=== PATIENT | male | born 1985 | race Caucasian/White ===

== ENCOUNTER 2016-08-30 14:14 | Inpatient (IN) | payer MEDICAID, OTHER ==
[~2016-08-30] VITALS: Ht 180.3 cm; Wt 75.5 kg
[~2016-08-30 14:14] MED LIST: DICL75 PO; METH750T2 PO
[2016-08-30] MEDS ORDERED: LORazepam 2 MG/ML VIAL IM ONE (14:30)
[2016-08-30] MEDS ORDERED: OLANZapine IM 10 MG VIAL IM ONE (14:30)
--- NOTE | 2016-08-30 14:32 | PD ---
HPI Chief Complaint: Psychiatric Symptoms Time Seen by Provider: 14:28 Travel History International Travel<30 days: No Contact w/Intl Traveler<30days: No Traveled to known affect area: No History of Present Illness HPI 30-year-old Afro-[place] Verdean male brought in by local police under the Hobbs act. Patient was brought in after being seen in the middle of the road yelling is passing cars and stating homicidal ideation regarding some man in [place]. Patient is confused and apparently psychotic. He appears to be sweating profusely and very agitated. There is no obvious injury noted. He is brought directly to [facility]. There are no known allergies on record. Patient was seen here previously for drug-induced mood disorder approximately 2 years ago. He has no known drug allergies. PFSH Past Medical History Hx Anticoagulant Therapy: No Diabetes: No Diminished Hearing: No Musculoskeletal: Yes (BACK PAIN) Social History Alcohol Use: Yes (UNOBTAINABLE AMOUNT) Tobacco Use: No (UNOBTAINABLE) Substance Use: Yes (MARIJUANA) Allergies-Medications (Allergen,Severity, Reaction): Coded Allergies: No Known Allergies (Unverified , 02/18/15) Reported Meds & Prescriptions Reported Meds & Active Scripts Active Robaxin (Methocarbamol) 750 Mg Tab 750 Mg PO TID PRN Diclofenac Sodium 75 Mg Tab 75 Mg PO BID 7 Days Review of Systems ROS Limitations: Uncooperative, Combative, Psychotic General / Constitutional: No: Fever Eyes: No: Visual changes HENT: No: Headaches Cardiovascular: No: Chest Pain or Discomfort Respiratory: No: Shortness of Breath Gastrointestinal: No: Abdominal Pain Genitourinary: No: Dysuria Musculoskeletal: No: Pain Skin: No Rash Neurologic: No: Weakness Psychiatric: No: Depression Endocrine: No: Polydipsia Hematologic/Lymphatic: No: Easy Bruising Physical Exam Exam Limitations: Uncooperative, Combative, Psychotic Narrative GENERAL: Patient appears confused and speaking gibberish. He is ambulatory and sweating. SKIN: Warm and moderate diaphoresis. No obvious signs of trauma, abrasions, or open wounds. EYES: No scleral icterus. No injection or drainage. ENT: No nasal bleeding or discharge. Mucous membranes pink and moist. NECK: Supple. Trachea is midline. RESPIRATORY: No accessory muscle use. MUSCULOSKELETAL: Extremities without clubbing, cyanosis, or edema. No obvious deformities. NEUROLOGICAL: Awake and alert. No obvious cranial nerve deficits. Motor grossly within normal limits. Five out of 5 muscle strength in the arms and legs. Normal speech. PSYCHIATRIC: Patient appears psychotic and not making sense in his sentences. Data Data Last Documented VS Vital Signs Date Time Temp Pulse Resp B/P Pulse Ox O2 Delivery O2 Flow Rate FiO2 08/30/16 15:57 98.8 110 20 127/52 96 Room Air Orders Complete Blood Count With Diff (08/30/16 14:27) Comprehensive Metabolic Panel (08/30/16 14:27) Psych Screen (08/30/16 14:27) Lorazepam Inj (Ativan Inj) (08/30/16 14:30) Drug Screen, Random Urine (08/30/16 14:27) Alcohol (Ethanol) (08/30/16 14:27) Olanzapine Inj (Zyprexa Inj) (08/30/16 14:30) Diet Regular Basic (08/30/16 Dinner) Restraints Violent (08/30/16 14:50) Potassium Chloride (Kcl) (08/30/16 19:15) Labs Laboratory Tests Test 08/30/16 08/30/16 16:45 18:20 White Blood Count 10.4 TH/MM3 Red Blood Count 4.79 MIL/MM3 Hemoglobin 16.4 GM/DL Hematocrit 47.9 % Mean Corpuscular Volume 100.1 FL Mean Corpuscular Hemoglobin 34.3 PG Mean Corpuscular Hemoglobin 34.3 % Concent Red Cell Distribution Width 14.6 % Platelet Count 242 TH/MM3 Mean Platelet Volume 7.9 FL Neutrophils (%) (Auto) 58.7 % Lymphocytes (%) (Auto) 21.9 % Monocytes (%) (Auto) 16.5 % Eosinophils (%) (Auto) 2.3 % Basophils (%) (Auto) 0.6 % Neutrophils # (Auto) 6.1 TH/MM3 Lymphocytes # (Auto) 2.3 TH/MM3 Monocytes # (Auto) 1.7 TH/MM3 Eosinophils # (Auto) 0.2 TH/MM3 Basophils # (Auto) 0.1 TH/MM3 CBC Comment DIFF FINAL Differential Comment Sodium Level 136 MEQ/L Potassium Level 3.3 MEQ/L Chloride Level 100 MEQ/L Carbon Dioxide Level 24.4 MEQ/L Anion Gap 12 MEQ/L Blood Urea Nitrogen 12 MG/DL Creatinine 1.23 MG/DL Estimat Glomerular Filtration 68 ML/MIN Rate Random Glucose 99 MG/DL Calcium Level 9.1 MG/DL Total Bilirubin 0.7 MG/DL Aspartate Amino Transf 54 U/L (AST/SGOT) Alanine Aminotransferase 148 U/L (ALT/SGPT) Alkaline Phosphatase 87 U/L Total Protein 7.8 GM/DL Albumin 4.2 GM/DL Ethyl Alcohol Level 68 MG/DL Urine Opiates Screen NEG Urine Barbiturates Screen NEG Urine Amphetamines Screen POS Urine Benzodiazepines Screen NEG Urine Cocaine Screen NEG Urine Cannabinoids Screen POS MDM Medical Decision Making Medical Screen Exam Complete: Yes Emergency Medical Condition: Yes Differential Diagnosis Intoxication. Drug-induced mood disorder. Psychosis. Need for medical clearance for psychiatric evaluation. Narrative Course Patient is medically stable at time of exam. Order for lorazepam 2 mg IM as well as 10 mg Zyprexa IM ordered. Lab ordered including CBC, CMP, urine drug screen, and serum alcohol level. CBC is unremarkable. CMP shows slightly low potassium of 3.3. Alcohol level is 68. AST is 54 nail TM is 148. Urine drug screen shows only positive for amphetamines and cannabinoids. Patient is given potassium 20 mEq by mouth. Patient is otherwise medically cleared for psychiatric evaluation. Diagnosis Primary Impression: Medical clearance for psychiatric admission Additional Impressions: Hypokalemia Psychosis Qualified Code: F29 - Psychosis, unspecified psychosis type Condition: Stable Adam Tomlinson Aug 30, 2016 14:32
[2016-08-30 15:57] VITALS: BP 127/52; PULSE 110; RESP 20; TEMP 98.8; O2SAT 96
[2016-08-30 17:38] LABS: ANION GAP 12 MEQ/L (5-15); AUTOMATED NEUTROPHIL # 6.1 TH/MM3 (1.8-7.7); BASOPHIL # 0.1 TH/MM3 (0-0.2); BASOPHIL % 0.6 % (0.0-2.0); EOSINOPHIL # 0.2 TH/MM3 (0-0.4); EOSINOPHIL % 2.3 % (0.0-4.0); HEMATOCRIT 47.9 % (39.0-51.0); HEMO FLAGS DIFF FINAL; LYMPH % 21.9 % (9.0-44.0); LYMPHOCYTE # 2.3 TH/MM3 (1.0-4.8); MEAN CELL VOLUME 100.1 FL (80.0-100.0); MEAN CORPUSCULAR HEMOGLOBIN 34.3 PG (27.0-34.0); MEAN CORPUSCULAR HGB CONC 34.3 % (32.0-36.0); MONO % 16.5 % (0.0-8.0); NEUT % 58.7 % (16.0-70.0); PLATELET COUNT 242 TH/MM3 (150-450); RED BLOOD COUNT 4.79 MIL/MM3 (4.50-5.90); RED CELL DISTRIBUTION WIDTH 14.6 % (11.6-17.2); WHITE BLOOD COUNT 10.4 TH/MM3 (4.0-11.0)
[2016-08-30 17:41] LABS: ALKALINE PHOSPHATASE 87 U/L (45-117); ALT (GPT) 148 U/L (12-78); AST (GOT) 54 U/L (15-37); BICARBONATE 24.4 MEQ/L (21.0-32.0); BLOOD UREA NITROGEN 12 MG/DL (7-18); CHLORIDE 100 MEQ/L (98-107); GLOMERULAR FILTRATION RATE 68 ML/MIN (>89); POTASSIUM 3.3 MEQ/L (3.5-5.1); SODIUM (NA) 136 MEQ/L (136-145); TOTAL BILIRUBIN ADULT 0.7 MG/DL (0.2-1.0)
[2016-08-30 18:58] LABS: AMPHETAMINE, URINE POS (NEG); BARBITURATES, URINE NEG (NEG); COCAINE, URINE NEG (NEG)
[2016-08-30] MEDS ORDERED: POTASSIUM CHLORIDE 20 MEQ CONTROLLED RELEASE TAB PO ONE (19:15)
[2016-08-30 22:28] VITALS: BP 115/61; PULSE 129; RESP 18; O2SAT 97
[2016-08-31] MEDS ORDERED: OLANZapine IM 10 MG VIAL IM ONE
[2016-08-31 02:42] VITALS: BP 155/69; PULSE 77; RESP 18; TEMP 97.6; O2SAT 97
[2016-08-31 06:25] VITALS: BP 145/78; PULSE 89; RESP 18; TEMP 97.3; O2SAT 99
[2016-08-31 10:49] VITALS: BP 80/50; PULSE 104; O2SAT 97
--- NOTE | 2016-08-31 12:17 | PD ---
History of Present Illness Chief Complaint: Psychiatric Symptoms Time Seen by Provider: 11:45 Travel History International Travel<30 Days: No Contact w/Intl Traveler<30days: No Known affected area: No Legal Status Legal Status: Hobbs Act Hobbs Act Signed By: Lore Massey History of Present Illness: History of Present Illness HPI 30-year-old Afro-[place]anaian male with unknown psychiatric history brought in by [employer] police under the Hobbs act. As per the report the police were called after the patient was yelling out at passing cars. he was also touching other people's cars for unknown reason. When police attempted to contact him he was irrational . He said he was going to blow someone's brains out in [place]. Patient presented to [facility] in an agitated manner and required ETO as well as restraints for potential; to harm self or others. Staff inform me that he was talking about blowing up the [place] in [place]. Later in the evening the patient once again became agitated and paranoid stating that " there was a convoy outside his room and that there were guns pointed at his father and his sister. he required a second ETO. Patient's toxicology report is positive for amphetamines, cannabinoids as well as BAL of 68. EMR reviewed and the patient was seen and released from ED in 2013 under a BA. He was dx as substance induced mood disorder. This morning he is asleep but awakens easily. he is sleepy and has no eye contact. Speech is soft. He does not initiate interaction. Initially he states that he has plans on " blowing my father's and my sister's brains out". When informed that he will not be discharged he then states " I was just bullshitting ". Nevertheless he presents with irritable and angry affect during interview. He denies any hallucinations at this time. I have attempted to contact [facility] listed and both telephone numbers are incorrect. I have no means of obtaining collateral information at this time. PFSH Past Medical History Hx Anticoagulant Therapy: No Bipolar Disorder: Yes Diabetes: No Diminished Hearing: No Musculoskeletal: Yes (BACK PAIN) Immunizations Current: Yes Tetanus Vaccination: > 5 Years Influenza Vaccination: No Past Surgical History Surgical History: No Previous Surgery Psychiatric History Psychiatric History Hx Psychiatric Treatment: Unknown History of Inpatient Treatment: Yes Guns or firearms in home: No Social History unable to obtain at this time Hx Alcohol Use: Yes (UNOBTAINABLE AMOUNT) Hx Tobacco Use: No Hx Substance Use: Yes (MARIJUANA) Substance Use Type: Alcohol, Marijuana, Amphetamines-Stimulants Hx of Substance Use Treatment: Yes Family Psychiatric History unable to obtain Allergies-Medications (Allergen,Severity, Reaction): Coded Allergies: No Known Allergies (Unverified , 02/18/15) Reported Meds & Prescriptions Reported Meds & Active Scripts Active Review of Systems ROS Limitations: Clinical Condition, Uncooperative Exam Alert: Yes [place]: Person Mood: Angry Affect: Restricted Speech: Clear (minimal responses) Eye Contact: None Memory Intact: Comment (not tested) Hallucinations: Auditory (reported last night) Delusions: Yes Delusion Type: Paranoid Suicidal: Ideation (deneis) Homicidal: Ideation (to blow the brains out of his sister and his father. ) Insight/Judgement poor. Impaired MDM Medical Decision Making Medical Record Reviewed: Yes Assessment/Plan 30 year old male under a BA after he was found yelling at passing cars. patient agitated in ED and J pod and required ETO as well as restraints. Patient with positive toxicology for amphetamines, cannabinoids and ETOH. No collateral information is available. Patient is placed on S[facility] list but it is determined that he may not be a safe transport to that facility. He will be admitted to inpatient psychiatric unit for further observation, to initiate treatment and to maintain safety. This may in fact clear up and may be a result of the substances but at this time it is not safe to discharge. Orders Complete Blood Count With Diff (08/30/16 14:27) Comprehensive Metabolic Panel (08/30/16 14:27) Psych Screen (08/30/16 14:27) Lorazepam Inj (Ativan Inj) (08/30/16 14:30) Drug Screen, Random Urine (08/30/16 14:27) Alcohol (Ethanol) (08/30/16 14:27) Olanzapine Inj (Zyprexa Inj) (08/30/16 14:30) Diet Regular Basic (08/30/16 Dinner) Restraints Violent (08/30/16 14:50) Potassium Chloride (Kcl) (08/30/16 19:15) Olanzapine Inj (Zyprexa Inj) (08/31/16 00:00) Diet Regular Basic (08/31/16 Breakfast) Diet Regular Basic (08/31/16 Lunch) Results Vital Signs Date Time Temp Pulse Resp B/P Pulse Ox O2 Delivery O2 Flow Rate FiO2 08/31/16 10:49 104 80/50 97 Room Air 08/31/16 06:25 97.3 89 18 145/78 99 Room Air 08/31/16 02:42 97.6 77 18 155/69 97 Room Air 08/30/16 22:28 129 18 115/61 97 08/30/16 15:57 98.8 110 20 127/52 96 Room Air Laboratory Tests Test 08/30/16 08/30/16 16:45 18:20 White Blood Count 10.4 Red Blood Count 4.79 Hemoglobin 16.4 Hematocrit 47.9 Mean Corpuscular Volume 100.1 Mean Corpuscular Hemoglobin 34.3 Mean Corpuscular Hemoglobin 34.3 Concent Red Cell Distribution Width 14.6 Platelet Count 242 Mean Platelet Volume 7.9 Neutrophils (%) (Auto) 58.7 Lymphocytes (%) (Auto) 21.9 Monocytes (%) (Auto) 16.5 Eosinophils (%) (Auto) 2.3 Basophils (%) (Auto) 0.6 Neutrophils # (Auto) 6.1 Lymphocytes # (Auto) 2.3 Monocytes # (Auto) 1.7 Eosinophils # (Auto) 0.2 Basophils # (Auto) 0.1 CBC Comment DIFF FINAL Differential Comment Sodium Level 136 Potassium Level 3.3 Chloride Level 100 Carbon Dioxide Level 24.4 Anion Gap 12 Blood Urea Nitrogen 12 Creatinine 1.23 Estimat Glomerular Filtration 68 Rate Random Glucose 99 Calcium Level 9.1 Total Bilirubin 0.7 Aspartate Amino Transf 54 (AST/SGOT) Alanine Aminotransferase 148 (ALT/SGPT) Alkaline Phosphatase 87 Total Protein 7.8 Albumin 4.2 Ethyl Alcohol Level 68 Urine Opiates Screen NEG Urine Barbiturates Screen NEG Urine Amphetamines Screen POS Urine Benzodiazepines Screen NEG Urine Cocaine Screen NEG Urine Cannabinoids Screen POS Diagnosis Primary Impression: Psychosis Additional Impressions: Substance-induced psychotic disorder with delusions Substance abuse Admitting Information Admitting Physician Requests: Admit (Dr. Brooks) Condition: Stable Problem Qualifiers Primary Impression: Psychosis Qualified Code: F29 - Psychosis, unspecified psychosis type Nisa Hinton Aug 31, 2016 12:17
[2016-08-31] MEDS ORDERED: MAGNESIUM HYDROXIDE SUSP 30 ML CUP PO PRN (12:30)
[2016-08-31] MEDS ORDERED: ACETAMINOPHEN 325 MG TAB PO PRN (12:30)
[2016-08-31] MEDS ORDERED: ALUMINUM/MAGNESIUM/SIMETH 30 ML CUP PO PRN (12:30)
[2016-08-31 13:30] VITALS: BP 118/84; PULSE 88; RESP 18; TEMP 97.5; O2SAT 96
[2016-09-01 06:11] VITALS: BP 125/60; PULSE 92; RESP 18; TEMP 98.8; O2SAT 98
[2016-09-01 08:26] LABS: ANION GAP 8 MEQ/L (5-15); BICARBONATE 27.6 MEQ/L (21.0-32.0); BLOOD UREA NITROGEN 11 MG/DL (7-18); CHLORIDE 104 MEQ/L (98-107); GLOMERULAR FILTRATION RATE 91 ML/MIN (>89); HDL CHOLESTEROL 46.1 MG/DL (40.0-60.0); LDL CHOLESTEROL 96 MG/DL (0-99); POTASSIUM 3.5 MEQ/L (3.5-5.1); SODIUM (NA) 140 MEQ/L (136-145)
[2016-09-01 12:48] LABS: HEMOGLOBIN A1a 0.8 %; HEMOGLOBIN A1b 0.7 %; HEMOGLOBIN Ao 87.9 %; HEMOGLOBIN F 0.6 %; HEMOGLOBIN LA1C 1.7 %; HEMOGLOBIN P3 3.1 %
[2016-09-01] MEDS ORDERED: ALUMINUM/MAGNESIUM/SIMETH 30 ML CUP PO PRN (16:45)
[2016-09-01] MEDS ORDERED: LORazepam 2 MG/ML VIAL IM PRN (16:45)
[2016-09-01] MEDS ORDERED: LORazepam 1 MG TAB PO PRN (16:45)
[2016-09-01] MEDS ORDERED: MAGNESIUM HYDROXIDE SUSP 30 ML CUP PO PRN (16:45)
[2016-09-01] MEDS ORDERED: diphenhydrAMINE HCL 50 MG CAP PO PRN (16:45)
[2016-09-01] MEDS ORDERED: ACETAMINOPHEN 325 MG TAB PO PRN (16:45)
--- NOTE | 2016-09-01 16:45 | HHI.HP ---
Provisional Diagnosis Admission Date Aug 31, 2016 at 12:24 [place]. 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 Express and informed consent means consent voluntarily given in writing, by a competent person, after sufficient explanation and disclosure of the subject matter involved to enable the person to make a knowing and willful decision without any element of force, fraud, deceit, duress, or other form of constraint or coercion. This person is 18 years of age or older, is not now known to be incompetent to consent to treatment with a guardian advocate, and does not have a health care surrogate or proxy currently making medical treatment decisions. I have found this person to be one of the following: [] Competent to provide express and informed consent, as defined above, for voluntary admission to this facility and is competent to provide express and informed consent for treatment. He/she has the consistent capacity to make well reasoned, willful, and knowing decisions concerning his or her medical or mental health treatment. The person fully and consistently understands the purpose of the admission for examination/placement and is fully capable of personally exercising all rights assured [place] [] Incompetent to provide express and informed consent to voluntary admission, and this is incompetent to provide express and informed consent to treatment. The person must be transferred to involuntary status and a petition for a guardian advocate filed with the Circuit Court. [x] Refusing to provide express and informed consent to voluntary admission but is competent to provide express and informed consent for treatment. The person must be discharged or transferred to involuntary status. Form shall be completed within 24 hours of a person's arrival at the receiving facility and filed in the clinical record of each person: 1. Admitted on a voluntary basis 2. Permitted to provide express and informed consent to his/her own treatment 3. Allowed to transfer from involuntary to voluntary status 4. Prior to permitting a person to consent to his or her own treatment after having been previously found incompetent to consent to treatment. History of Present Illness Capacity: Lacks Capacity HPI Patient is a 30-year-old Afro-Ecuadorean male comes here under Hobbs act to the injury [employer] dated 08/30/16 at 1:17 PM stating person called in advising him male was yelling at passing cars RP advised the male was also touching other people's vehicles for an unknown reason officer palm make contact with Fariha who was irrational and advised he was waiting for his father [place] the male earlier talking to himself Fried advised he was going to go and below someone's brains out in [place] of been advised he was my father and was not making sense Fariha smell of alcohol. Patient seen screened in ED urine toxicology positive for amphetamines and marijuana, blood alcohol level of 68. In the ED in J pod patient was out of control dated be placed in restraints was given to ETO's of Zyprexketurah. At the present time patient stenting of the day room with me and nurse Ciro. Patient markedly distracted is a as if responding to internal stimuli being quite evasive and contradictory statements. He states he is homeless. That he just had some friends shared marijuana with them that he did his amphetamines intravenous that is just drinking a little alcohol. He denied voices visions though he was marked thought blocking noted he denies suicidality homicidality. Patient states she is on probation for various charges is supposed to be going to [facility] act. Though again he was evasive about the restrictions of his probation. Many events at the present time patient does meet criteria for involuntary psychiatric hospitalization under the Hobbs act. I'll do first opinion requests second opinion. Since there is a good possibility this may be all drug-induced will refrain from any scheduled antipsychotics depending on his behavior. And continue to assess and observe Review of Systems Except as stated in HPI: all other systems reviewed are Neg Past Psych History Violence risk - others (6 mos) Patient was aggressive and hostile towards people and vehicles of the community Violence risk - self (6 mos) Denies Substance Abuse History Drugs/Alcohol past 12 months Act of alcohol and substance abuse Past Family Social History Coded Allergies: No Known Allergies (Unverified , 02/18/15) Past Medical History Unknown at this time Current Medications Medications (Trade) Dose Ordered Sig/Yonatan Route Start Time Stop Time Status Last Admin (Tylenol) 650 mg Q4H PRN PO 08/31/16 12:30 (Milk Of Magnesia Liq) 30 ml DAILY PRN PO 2/18/17 12:30 (Mag-Al Plus Susp Liq) 30 ml Q6H PRN PO 08/31/16 12:30 Family History Denies Social History Patient homeless Patient's Strengths (min. 2) Patient verbal labile axis health care Physical Exam Patient seen screened in ED exam reviewed and agreed with vital signs blood pressure 125/60 pulse 92 respirations 18 Vital Signs Vital Signs Date Time Temp Pulse Resp B/P Pulse Ox O2 Delivery O2 Flow Rate FiO2 09/01/16 06:11 98.8 92 18 125/60 98 08/31/16 10:49 Room Air Mental Status Examination Alert diffusely disorganized though slender Afro-Ecuadorean male guarded irritable entitled manipulative with poor eye contact, markedly distractible Appearance Fairly clean and neat Speech: Pressured, Rapid, Circumstantial, Tangential Orientation: Person, Place Memory: Unremarkable (patient guarded and responses) Thought Process: Linear, Tangential, Thought Blocking Thought Content: Paranoid Hallucination Type: None (patient appears to be responding to internal stimuli) Attention and Concentration: Easily Distracted Suicidal Ideation: No Previous Suicide Attempts: No Homicidal Ideation: No Previous Homicide Attempts: No Insight: Poor Judgement: Poor Affect: Other Mood: Oppositional (slight increase range of motion intensity), Irritable Motor Activity: Normal gait Assessment & Plan Problem List: (1) Substance-induced psychotic disorder with delusions ICD Code: F19.950 (2) Amphetamine abuse ICD Code: F15.10 (3) Marijuana abuse ICD Code: F12.10 (4) Alcohol abuse ICD Code: F10.10 Assessment & Plan Estimated LOS: 5-7 days at this time patient meets criteria for further observation assessment of the Hobbs act I'll do first opinion request second opinion. Discharge Planning To be determined Request HC Surrog/Guard Advoc?: No Jordy Brooks MD Sep 01, 2016 16:45
[2016-09-01 18:00] VITALS: BP 127/62; PULSE 88; RESP 16; TEMP 97.8; O2SAT 99
[2016-09-02 06:14] VITALS: BP 123/57; PULSE 66; RESP 18; TEMP 98.2; O2SAT 97
[2016-09-02] MEDS ORDERED: NICOTINE 21 MG/24 HR PATCH T-DERMAL SCH (09:00)
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
[2016-09-02] MEDS ORDERED: REMOVE OLD NICODERM (NICOTINE) PATCH TD SCH (21:00)
== END 2016-09-02 12:50 | disposition left against medical advice (07) | DRG 894 ==
LOC: NEPJ 14:14 → NEDA 08-31 12:24 → H270 08-31 13:27
PROVIDERS: ADMIT Psychiatry & Neurology Psychiatry; ATTEND Psychiatry & Neurology Psychiatry
DX: F19.950 Other psychoactive substance use, unspecified with psychoactive substance-induced psychotic disorder with delusions (principal); F15.10 Other stimulant abuse, uncomplicated; F12.10 Cannabis abuse, uncomplicated; F10.10 Alcohol abuse, uncomplicated; Y90.3 Blood alcohol level of 60-79 mg/100 ml; Z59.0 Homelessness; Z72.0 Tobacco use; E87.6 Hypokalemia
CPT/HCPCS: 80048; 80053; 80061; 80307; 80320; 83036; 85025; 96372; 96374; J2060

== ENCOUNTER 2017-09-05 20:33 | Emergency (ER) | payer OTHER ==
[~2017-09-05] VITALS: Ht 180.3 cm; Wt 75.5 kg
[2017-09-05 21:28] VITALS: BP 111/71; PULSE 128; RESP 18; TEMP 98.2; O2SAT 95
[2017-09-05 22:09] LABS: AUTOMATED NEUTROPHIL # 5.3 TH/MM3 (1.8-7.7); BASOPHIL % 0.5 % (0.0-2.0); EOSINOPHIL # 0.2 TH/MM3 (0-0.4); EOSINOPHIL % 2.7 % (0.0-4.0); HEMATOCRIT 42.6 % (39.0-51.0); HEMOGLOBIN 14.5 GM/DL (13.0-17.0); LYMPH % 28.2 % (9.0-44.0); LYMPHOCYTE # 2.5 TH/MM3 (1.0-4.8); MEAN CELL VOLUME 96.5 FL (80.0-100.0); MEAN CORPUSCULAR HEMOGLOBIN 32.8 PG (27.0-34.0); MEAN PLATELET VOLUME 7.3 FL (7.0-11.0); MONO % 7.8 % (0.0-8.0); MONOCYTE # 0.7 TH/MM3 (0-0.9); NEUT % 60.8 % (16.0-70.0); PLATELET COUNT 339 TH/MM3 (150-450); RED BLOOD COUNT 4.41 MIL/MM3 (4.50-5.90); RED CELL DISTRIBUTION WIDTH 13.5 % (11.6-17.2); WHITE BLOOD COUNT 8.8 TH/MM3 (4.0-11.0)
[2017-09-05 22:23] LABS: ALBUMIN 3.9 GM/DL (3.4-5.0); ALT (GPT) 24 U/L (12-78); AST (GOT) 19 U/L (15-37); BICARBONATE 26.2 MEQ/L (21.0-32.0); BLOOD UREA NITROGEN 13 MG/DL (7-18); CALCIUM 8.6 MG/DL (8.5-10.1); CHLORIDE 111 MEQ/L (98-107); CREATININE 1.06 MG/DL (0.60-1.30); GLOMERULAR FILTRATION RATE 80 ML/MIN (>89); GLUCOSE,RANDOM 81 MG/DL (74-106); SODIUM (NA) 143 MEQ/L (136-145)
[2017-09-05 22:25] LABS: ALKALINE PHOSPHATASE 75 U/L (45-117); TOTAL BILIRUBIN ADULT 0.2 MG/DL (0.2-1.0); TOTAL PROTEIN 7.3 GM/DL (6.4-8.2)
[2017-09-05 23:45] VITALS: BP 98/58; PULSE 97; RESP 17; TEMP 99; O2SAT 98
--- NOTE | 2017-09-05 23:48 | PD ---
HPI Chief Complaint: Psychiatric Symptoms Time Seen by Provider: 21:48 Travel History International Travel<30 days: No Contact w/Intl Traveler<30days: No Traveled to known affect area: No History of Present Illness HPI 31-year-old homeless black male presents emergency department under a [place] act by PD. Please found the patient wandering the streets and appeared to be intoxicated. When they had contacted the individual he had stated that he was looking for the killer of his . The patient denies any suicidal or homicidal ideation. This is a individual who presented in a similar fashion last year. The patient admits to alcohol and marijuana. He denies any toxic ingestions. No medical complaints otherwise. Patient is requesting something to eat. PFSH Past Medical History Hx Anticoagulant Therapy: No Bipolar Disorder: Yes (PER PATIENT) Diabetes: No Patient Takes Glucophage: No Diminished Hearing: No Hepatitis: Yes (PER PT A & B, POSS C) Musculoskeletal: Yes (BACK PAIN) Immunizations Current: Yes Tetanus Vaccination: Unknown Past Surgical History Surgical History: No Previous Surgery Social History Alcohol Use: Yes (UNOBTAINABLE AMOUNT) Tobacco Use: No Substance Use: Yes (MARIJUANA, ALCOHOL) Allergies-Medications (Allergen,Severity, Reaction): Coded Allergies: No Known Allergies (Unverified , 02/18/15) Reported Meds & Prescriptions Reported Meds & Active Scripts Active No Active Prescriptions or Reported Medications Review of Systems General / Constitutional: No: Fever Eyes: No: Visual changes HENT: No: Headaches Cardiovascular: No: Chest Pain or Discomfort Respiratory: No: Shortness of Breath Gastrointestinal: No: Abdominal Pain Genitourinary: No: Dysuria Musculoskeletal: No: Pain Skin: No Rash Neurologic: No: Weakness Psychiatric: Positive: Disorder of Thought, Mood Disorder, Substance Abuse, No : Anxiety, Depression, Suicidal Ideations, Homicidal Ideation Endocrine: No: Polydipsia Hematologic/Lymphatic: No: Easy Bruising Physical Exam Narrative GENERAL: Well-nourished, well-developed patient. SKIN: Warm and dry. HEAD: Normocephalic and atraumatic. EYES: No scleral icterus. No injection or drainage. ENT: No nasal drainage noted. Mucous membranes pink. Airway patent. NECK: Supple, trachea midline. Moves head freely without obvious discomfort. CARDIOVASCULAR: Regular rate and rhythm without murmurs, gallops, or rubs. RESPIRATORY: Breath sounds equal bilaterally. No accessory muscle use. GASTROINTESTINAL: Abdomen soft, non-tender, nondistended. EXTREMITIES: No cyanosis or edema. BACK: Nontender without obvious deformity. No CVA tenderness. NEURO: Patient is alert and oriented. no sensorimotor deficits. Nonfocal. Normal speech. PSYCH: No delusions. No auditory or visual hallucinations. Data Data Last Documented VS Vital Signs Date Time Temp Pulse Resp B/P (MAP) Pulse Ox O2 Delivery O2 Flow Rate FiO2 09/05/17 21:28 98.2 128 18 111/71 (84) 95 Room Air Orders Orders Complete Blood Count With Diff (09/05/17 21:16) Comprehensive Metabolic Panel (09/05/17 21:16) Psych Screen (09/05/17 21:16) Drug Screen, Random Urine (09/05/17 21:16) Alcohol (Ethanol) (09/05/17 21:16) Labs Laboratory Tests Test 09/05/17 21:36 09/05/17 21:38 White Blood Count 8.8 TH/MM3 Red Blood Count 4.41 MIL/MM3 Hemoglobin 14.5 GM/DL Hematocrit 42.6 % Mean Corpuscular Volume 96.5 FL Mean Corpuscular Hemoglobin 32.8 PG Mean Corpuscular Hemoglobin Concent 34.0 % Red Cell Distribution Width 13.5 % Platelet Count 339 TH/MM3 Mean Platelet Volume 7.3 FL Neutrophils (%) (Auto) 60.8 % Lymphocytes (%) (Auto) 28.2 % Monocytes (%) (Auto) 7.8 % Eosinophils (%) (Auto) 2.7 % Basophils (%) (Auto) 0.5 % Neutrophils # (Auto) 5.3 TH/MM3 Lymphocytes # (Auto) 2.5 TH/MM3 Monocytes # (Auto) 0.7 TH/MM3 Eosinophils # (Auto) 0.2 TH/MM3 Basophils # (Auto) 0.0 TH/MM3 CBC Comment DIFF FINAL Differential Comment Blood Urea Nitrogen 13 MG/DL Creatinine 1.06 MG/DL Random Glucose 81 MG/DL Total Protein 7.3 GM/DL Albumin 3.9 GM/DL Calcium Level 8.6 MG/DL Alkaline Phosphatase 75 U/L Aspartate Amino Transf (AST/SGOT) 19 U/L Alanine Aminotransferase (ALT/SGPT) 24 U/L Total Bilirubin 0.2 MG/DL Sodium Level 143 MEQ/L Potassium Level 3.4 MEQ/L Chloride Level 111 MEQ/L Carbon Dioxide Level 26.2 MEQ/L Anion Gap 6 MEQ/L Estimat Glomerular Filtration Rate 80 ML/MIN Ethyl Alcohol Level 146 MG/DL Urine Opiates Screen NEG Urine Barbiturates Screen NEG Urine Amphetamines Screen NEG Urine Benzodiazepines Screen NEG Urine Cocaine Screen NEG Urine Cannabinoids Screen POS MDM Medical Decision Making Medical Screen Exam Complete: Yes Emergency Medical Condition: Yes Medical Record Reviewed: Yes Interpretation(s) Laboratory Tests Test 09/05/17 21:36 09/05/17 21:38 White Blood Count 8.8 TH/MM3 Red Blood Count 4.41 MIL/MM3 Hemoglobin 14.5 GM/DL Hematocrit 42.6 % Mean Corpuscular Volume 96.5 FL Mean Corpuscular Hemoglobin 32.8 PG Mean Corpuscular Hemoglobin Concent 34.0 % Red Cell Distribution Width 13.5 % Platelet Count 339 TH/MM3 Mean Platelet Volume 7.3 FL Neutrophils (%) (Auto) 60.8 % Lymphocytes (%) (Auto) 28.2 % Monocytes (%) (Auto) 7.8 % Eosinophils (%) (Auto) 2.7 % Basophils (%) (Auto) 0.5 % Neutrophils # (Auto) 5.3 TH/MM3 Lymphocytes # (Auto) 2.5 TH/MM3 Monocytes # (Auto) 0.7 TH/MM3 Eosinophils # (Auto) 0.2 TH/MM3 Basophils # (Auto) 0.0 TH/MM3 CBC Comment DIFF FINAL Differential Comment Blood Urea Nitrogen 13 MG/DL Creatinine 1.06 MG/DL Random Glucose 81 MG/DL Total Protein 7.3 GM/DL Albumin 3.9 GM/DL Calcium Level 8.6 MG/DL Alkaline Phosphatase 75 U/L Aspartate Amino Transf (AST/SGOT) 19 U/L Alanine Aminotransferase (ALT/SGPT) 24 U/L Total Bilirubin 0.2 MG/DL Sodium Level 143 MEQ/L Potassium Level 3.4 MEQ/L Chloride Level 111 MEQ/L Carbon Dioxide Level 26.2 MEQ/L Anion Gap 6 MEQ/L Estimat Glomerular Filtration Rate 80 ML/MIN Ethyl Alcohol Level 146 MG/DL Urine Opiates Screen NEG Urine Barbiturates Screen NEG Urine Amphetamines Screen NEG Urine Benzodiazepines Screen NEG Urine Cocaine Screen NEG Urine Cannabinoids Screen POS Differential Diagnosis MDM: High Differential diagnoses: Schizophrenia, schizoaffective disorder, bipolar, anxiety, depression, adjustment reaction, mood disorder NOS, ODD, depressive disorder NOS, dementia, dementia with agitation, psychosis NOS, substance induced mood disorder, DMDD, Asperger syndrome, infection,electrolyte abnormality, malingering. Narrative Course Mental health screening discussed with the patient. Psychiatric screen ordered. The patient has been medically clear. This is medical clearance for psychiatric admission Diagnosis Primary Impression: Medical clearance for psychiatric admission Additional Impression: Substance abuse Patient Instructions: General Instructions Departure Forms: Tests/Procedures Additional Instructions: TO ACT/SMA FOR FOLLOW-UP CARE/TREATMENT. Scripts No Active Prescriptions or Reported Meds Disposition: 65 DISC TO PSYCH CARE FACILITY Condition: Stable Cullen Perez Sep 05, 2017 23:48
== END 2017-09-06 00:53 ==
LOC: NEDAMB 20:33 → NEPJ 09-06 00:53
DX: F10.10 Alcohol abuse, uncomplicated (principal); F12.10 Cannabis abuse, uncomplicated; F31.9 Bipolar disorder, unspecified; Z59.0 Homelessness
CPT/HCPCS: 80053; 80307; 85025; 99285

== ENCOUNTER 2017-09-07 09:46 | Emergency (ER) | payer OTHER ==
[~2017-09-07] VITALS: Ht 182.9 cm; Wt 80.0 kg
[2017-09-07 09:58] VITALS: BP 148/77; PULSE 112; RESP 16; TEMP 98; O2SAT 99
[2017-09-07] MEDS ORDERED: LORazepam 2 MG/ML VIAL IM ONE (10:00)
[2017-09-07] MEDS ORDERED: HALOPERIDOL LACTATE 5 MG/ML AMP IM ONE (10:30)
[2017-09-07 10:55] LABS: AUTOMATED NEUTROPHIL # 4.7 TH/MM3 (1.8-7.7); BASOPHIL # 0.1 TH/MM3 (0-0.2); BASOPHIL % 0.7 % (0.0-2.0); EOSINOPHIL # 0.3 TH/MM3 (0-0.4); EOSINOPHIL % 3.6 % (0.0-4.0); HEMATOCRIT 43.7 % (39.0-51.0); HEMOGLOBIN 15.1 GM/DL (13.0-17.0); LYMPH % 30.6 % (9.0-44.0); LYMPHOCYTE # 2.6 TH/MM3 (1.0-4.8); MEAN CELL VOLUME 97.1 FL (80.0-100.0); MEAN CORPUSCULAR HEMOGLOBIN 33.5 PG (27.0-34.0); MEAN CORPUSCULAR HGB CONC 34.5 % (32.0-36.0); MEAN PLATELET VOLUME 7.2 FL (7.0-11.0); MONO % 9.8 % (0.0-8.0); MONOCYTE # 0.8 TH/MM3 (0-0.9); NEUT % 55.3 % (16.0-70.0); PLATELET COUNT 339 TH/MM3 (150-450); WHITE BLOOD COUNT 8.5 TH/MM3 (4.0-11.0)
[2017-09-07 11:16] LABS: ALBUMIN 3.8 GM/DL (3.4-5.0); AST (GOT) 22 U/L (15-37); BICARBONATE 23.9 MEQ/L (21.0-32.0); BLOOD UREA NITROGEN 10 MG/DL (7-18); CALCIUM 8.1 MG/DL (8.5-10.1); CHLORIDE 112 MEQ/L (98-107); CREATININE 0.89 MG/DL (0.60-1.30); GLOMERULAR FILTRATION RATE 98 ML/MIN (>89); GLUCOSE,RANDOM 77 MG/DL (74-106); SODIUM (NA) 143 MEQ/L (136-145)
[2017-09-07 11:27] LABS: ALKALINE PHOSPHATASE 72 U/L (45-117); ALT (GPT) 25 U/L (12-78); TOTAL BILIRUBIN ADULT 0.1 MG/DL (0.2-1.0); TOTAL PROTEIN 7.5 GM/DL (6.4-8.2)
--- NOTE | 2017-09-07 11:39 | PD ---
HPI Chief Complaint: Psychiatric Symptoms Time Seen by Provider: 10:00 Travel History International Travel<30 days: No Contact w/Intl Traveler<30days: No Traveled to known affect area: No History of Present Illness HPI Patient is a 31-year-old male brought in by police under a Hob[place] act. Per Hob[place] act, he was found in the streets saying he wanted to kill people for killing his . Patient is inappropriate, aggressive. He provides no history. He was here 2 days ago for the same thing. PFSH Past Medical History Hx Anticoagulant Therapy: No Bipolar Disorder: Yes (PER PATIENT) Diabetes: No Diminished Hearing: No Hepatitis: Yes (PER PT A & B, POSS C) Musculoskeletal: Yes (BACK PAIN) Immunizations Current: Yes Past Surgical History Surgical History: No Previous Surgery Social History Alcohol Use: Yes (STATES "I AM AN ALCOHOLIC") Tobacco Use: No Substance Use: Yes (MARIJUANA, ALCOHOL) Allergies-Medications (Allergen,Severity, Reaction): Coded Allergies: No Known Allergies (Verified Adverse Reaction, Unknown, 09/07/17) Reported Meds & Prescriptions Reported Meds & Active Scripts Active No Active Prescriptions or Reported Medications Review of Systems ROS Limitations: Intoxication, Uncooperative Physical Exam Narrative GENERAL: Awake and alert, speaking inappropriately. SKIN: Focused skin assessment warm/dry. No wounds or signs of infection. HEAD: Atraumatic. Normocephalic. EYES: Pupils equal and round. No scleral icterus. Extraocular movements intact. ENT: Mucous membranes pink and moist. NECK: Trachea midline. No JVD. CARDIOVASCULAR: Regular rate and rhythm. No murmur appreciated. RESPIRATORY: No accessory muscle use. Clear to auscultation. Breath sounds equal bilaterally. GASTROINTESTINAL: Abdomen soft, non-tender, nondistended. MUSCULOSKELETAL: No obvious deformities. No clubbing. No cyanosis. No edema. NEUROLOGICAL: Awake and alert. No obvious cranial nerve deficits. Motor grossly within normal limits. Normal speech. PSYCHIATRIC: Aggressive and speaking inappropriately. Data Data Last Documented VS Vital Signs Date Time Temp Pulse Resp B/P (MAP) Pulse Ox O2 Delivery O2 Flow Rate FiO2 09/07/17 09:58 98.0 112 16 148/77 (100) 99 Orders Orders Complete Blood Count With Diff (09/07/17 10:00) Comprehensive Metabolic Panel (09/07/17 10:00) Thyroid Stimulating Hormone (09/07/17 10:00) Psych Screen (09/07/17 10:00) Lorazepam Inj (Ativan Inj) (09/07/17 10:00) Drug Screen, Random Urine (09/07/17 10:00) Alcohol (Ethanol) (09/07/17 10:00) Restraints Violent (09/07/17 10:18) Haloperidol Inj (Haldol Inj) (09/07/17 10:30) Labs Laboratory Tests Test 09/07/17 10:15 White Blood Count 8.5 TH/MM3 Red Blood Count 4.50 MIL/MM3 Hemoglobin 15.1 GM/DL Hematocrit 43.7 % Mean Corpuscular Volume 97.1 FL Mean Corpuscular Hemoglobin 33.5 PG Mean Corpuscular Hemoglobin Concent 34.5 % Red Cell Distribution Width 14.0 % Platelet Count 339 TH/MM3 Mean Platelet Volume 7.2 FL Neutrophils (%) (Auto) 55.3 % Lymphocytes (%) (Auto) 30.6 % Monocytes (%) (Auto) 9.8 % Eosinophils (%) (Auto) 3.6 % Basophils (%) (Auto) 0.7 % Neutrophils # (Auto) 4.7 TH/MM3 Lymphocytes # (Auto) 2.6 TH/MM3 Monocytes # (Auto) 0.8 TH/MM3 Eosinophils # (Auto) 0.3 TH/MM3 Basophils # (Auto) 0.1 TH/MM3 CBC Comment DIFF FINAL Differential Comment Blood Urea Nitrogen 10 MG/DL Creatinine 0.89 MG/DL Random Glucose 77 MG/DL Total Protein 7.5 GM/DL Albumin 3.8 GM/DL Calcium Level 8.1 MG/DL Alkaline Phosphatase 72 U/L Aspartate Amino Transf (AST/SGOT) 22 U/L Alanine Aminotransferase (ALT/SGPT) 25 U/L Total Bilirubin 0.1 MG/DL Sodium Level 143 MEQ/L Potassium Level 3.6 MEQ/L Chloride Level 112 MEQ/L Carbon Dioxide Level 23.9 MEQ/L Anion Gap 7 MEQ/L Estimat Glomerular Filtration Rate 98 ML/MIN Thyroid Stimulating Hormone 3rd Gen 0.203 uIU/ML Urine Opiates Screen NEG Urine Barbiturates Screen NEG Urine Amphetamines Screen NEG Urine Benzodiazepines Screen NEG Urine Cocaine Screen NEG Urine Cannabinoids Screen NEG Ethyl Alcohol Level 263 MG/DL MDM Medical Decision Making Medical Screen Exam Complete: Yes Emergency Medical Condition: Yes Medical Record Reviewed: Yes Differential Diagnosis Intoxication versus psychosis versus drug abuse Narrative Course Patient is a 31-year-old male brought in by police under a Hobbs act. Patient is speaking inappropriately, he is aggressive, he is walking naked in his room. He was sedated using Ativan and Haldol, he had to be restrained. Labs sent show no acute abnormalities. He is acutely intoxicated on alcohol. He will be medically cleared for psychiatric evaluation. Diagnosis Primary Impression: Psychosis Qualified Codes: F29 - Unspecified psychosis not due to a substance or known physiological condition Additional Impression: Alcohol intoxication Qualified Codes: F10.929 - Alcohol use, unspecified with intoxication, unspecified Scripts No Active Prescriptions or Reported Meds Molly Moore MD Sep 07, 2017 11:39
[2017-09-07 12:00] VITALS: BP 128/72; PULSE 74; RESP 16; O2SAT 100
[2017-09-07 15:17] VITALS: BP 119/63; PULSE 81; RESP 18; O2SAT 99
[2017-09-07 18:30] VITALS: BP 109/57; PULSE 96; RESP 18; O2SAT 98
[2017-09-07 22:25] VITALS: BP 129/59; PULSE 87; RESP 18; TEMP 99.3; O2SAT 98
[2017-09-08 06:14] VITALS: BP 138/63; PULSE 86; RESP 17; TEMP 98.9; O2SAT 99
[2017-09-08 10:07] VITALS: BP 129/68; PULSE 87; RESP 16; O2SAT 100
--- NOTE | 2017-09-08 17:00 | PD ---
History of Present Illness Chief Complaint: Psychiatric Symptoms Time Seen by Provider: 16:45 Travel History International Travel<30 Days: No Contact w/Intl Traveler<30days: No Known affected area: No Legal Status Legal Status: Hobbs Act Hobbs Act Signed By: Lore Massey History of Present Illness: History of Present Illness HPI Patient is a 31-year-old male with history of substance use disorder who is brought in by police under a Hobbs act. Per Hobbs act, he was found in the streets acting erratically and saying he wanted to kill people for killing his . Upon arrival to the ED the patient is reported as having been inappropriate, aggressive. He required ETO as well as restraints. He has been monitored in J pod for extended period of time with no further behavioral concerns. EMR is reviewed. The patient was last evaluated in the ED 2 days ago. He was admitted to our inpatient psychiatric unit in August 31 for drug and that was psychosis. Current toxicology is negative. Blood alcohol level is 263. The patient is seen in J pod. He is asleep but awakens easily. He is calm and cooperative. He denies that he is hearing any voices or seeing anything. He denies any suicidal or homicidal ideation, intent or plan. He does not appear internally preoccupied. Does not appear manic. He does report that he was having a dream in which he saw his run away with 2 other people. He is clear that it was a dream. He also admits that he used some crack as well as alcohol prior to being placed under the Hobbs act. The patient is wanting to be discharged as he has a job lined up for himself and wants to be able to follow up with. PFSH Past Medical History Hx Anticoagulant Therapy: No Bipolar Disorder: Yes (PER PATIENT) Diabetes: No Diminished Hearing: No Hepatitis: Yes (PER PT A & B, POSS C) Musculoskeletal: Yes (BACK PAIN) Immunizations Current: Yes Past Surgical History Surgical History: No Previous Surgery Psychiatric History Psychiatric History Hx Psychiatric Treatment: Was hospitalized at [facility] psychiatry Department August 31 and treated for drug-induced psychosis. History of Inpatient Treatment: Yes Guns or firearms in home: No Social History , homeless. States he was released from intermediate on Friday. Hx Alcohol Use: Yes (STATES "I AM AN ALCOHOLIC") Hx Tobacco Use: No Hx Substance Use: Yes (MARIJUANA, ALCOHOL) Substance Use Type: Alcohol, Marijuana, Amphetamines-Stimulants Hx of Substance Use Treatment: Yes Family Psychiatric History Negative Allergies-Medications (Allergen,Severity, Reaction): Coded Allergies: No Known Allergies (Verified Adverse Reaction, Unknown, 09/07/17) Reported Meds & Prescriptions Reported Meds & Active Scripts Active No Active Prescriptions or Reported Medications Review of Systems Psychiatric: DENIES: Anxiety, Confusion, Mood changes, Depression, Hallucinations, Agitation, Suicidal Ideation, Homicidal Ideation, Delusions Except as stated in HPI: all other systems reviewed are Neg Mental Status Examination Appearance: Appropriate (in [facility]) Consciousness: Alert Orientation: x4 Motor Activity: Normal gait Speech: Unremarkable Language: Adequate Fund of Knowledge: Adequate Attention and Concentration: Adequate Memory: Unremarkable Mood: Appropriate Affect: Appropriate Thought Process & Associations: Intact, Logical, Goal directed Thought Content: Appropriate Hallucination Type: None Delusion Type: None Suicidal Ideation: No Suicidal Plan: No Suicidal Intention: No Homicidal Ideation: No Homicidal Plan: No Homicidal Intention: No Insight: Poor Judgment: Impulsive MDM Medical Decision Making Medical Record Reviewed: Yes Assessment/Plan 31-year-old male with known history of substance abuse who comes into the emergency department under a Hobbs act initiated by law enforcement. The report alleges that he was found wandering around acting erratically and talking about his being harmed and wanting to harm the person who did that. The patient was under the influence of alcohol at the time with a blood alcohol level of 263. He also admits to having used some crack cocaine. The patient was monitored in secure environment and was allowed to sober up clinically. Once clinically sober the patient does not present any psychosis, no melissa and denies any suicidal or homicidal ideation intent or plan. The patient is future oriented and wants to be able to be discharged so that he can follow up with the job that he has lined up. He is requesting a copy of his picture ID from his record in order to follow-up with his job. At the time of this evaluation the patient does not meet criteria for Hobbs act. No evidence of unstable mental illness as defined under the Hobbs act. The Hobbs act is lifted. Psychiatrically clear for discharge. Orders Orders Diet Regular Basic (09/08/17 Breakfast) Diet Regular Basic (09/08/17 Lunch) Diet Regular Basic (09/08/17 Dinner) Results Vital Signs Date Time Temp Pulse Resp B/P (MAP) Pulse Ox O2 Delivery O2 Flow Rate FiO2 09/08/17 10:07 87 16 129/68 (88) 100 Room Air 09/08/17 06:14 98.9 86 17 138/63 (88) 99 Room Air 09/07/17 22:25 99.3 87 18 129/59 (82) 98 Room Air 09/07/17 18:30 96 18 109/57 (74) 98 Room Air 09/07/17 17:13 Diagnosis Primary Impression: Alcohol intoxication Additional Impression: Psychosis Psychiatrically Cleared: Yes Med/ Other Pt Specific Info: No Meds Exist/No RX given Prescriptions No Active Prescriptions or Reported Meds Disposition: 01 DISCHARGE HOME Condition: Stable Problem Qualifiers Primary Impression: Alcohol intoxication Qualified Codes: F10.929 - Alcohol use, unspecified with intoxication, unspecified Additional Impression: Psychosis Qualified Codes: F29 - Unspecified psychosis not due to a substance or known physiological condition Nisa Hinton Sep 08, 2017 17:00
[2017-09-08 17:47] VITALS: BP 115/73; PULSE 82; RESP 18; O2SAT 99
--- NOTE | 2017-09-08 18:46 | PD ---
Physical Exam Date Seen by Provider: Sep 08, 2017 Time Seen by Provider: 18:45 Data Data Last Documented VS Vital Signs Date Time Temp Pulse Resp B/P (MAP) Pulse Ox O2 Delivery O2 Flow Rate FiO2 09/08/17 17:47 82 18 115/73 (87) 99 Room Air 09/08/17 06:14 98.9 Orders Orders Complete Blood Count With Diff (09/07/17 10:00) Comprehensive Metabolic Panel (09/07/17 10:00) Thyroid Stimulating Hormone (09/07/17 10:00) Psych Screen (09/07/17 10:00) Lorazepam Inj (Ativan Inj) (09/07/17 10:00) Drug Screen, Random Urine (09/07/17 10:00) Alcohol (Ethanol) (09/07/17 10:00) Restraints Violent (09/07/17 10:18) Haloperidol Inj (Haldol Inj) (09/07/17 10:30) Diet Regular Basic (09/08/17 Breakfast) Diet Regular Basic (09/08/17 Lunch) Diet Regular Basic (09/08/17 Dinner) Ed Discharge Order (09/08/17 18:05) Labs Laboratory Tests Test 09/07/17 10:15 White Blood Count 8.5 TH/MM3 Red Blood Count 4.50 MIL/MM3 Hemoglobin 15.1 GM/DL Hematocrit 43.7 % Mean Corpuscular Volume 97.1 FL Mean Corpuscular Hemoglobin 33.5 PG Mean Corpuscular Hemoglobin Concent 34.5 % Red Cell Distribution Width 14.0 % Platelet Count 339 TH/MM3 Mean Platelet Volume 7.2 FL Neutrophils (%) (Auto) 55.3 % Lymphocytes (%) (Auto) 30.6 % Monocytes (%) (Auto) 9.8 % Eosinophils (%) (Auto) 3.6 % Basophils (%) (Auto) 0.7 % Neutrophils # (Auto) 4.7 TH/MM3 Lymphocytes # (Auto) 2.6 TH/MM3 Monocytes # (Auto) 0.8 TH/MM3 Eosinophils # (Auto) 0.3 TH/MM3 Basophils # (Auto) 0.1 TH/MM3 CBC Comment DIFF FINAL Differential Comment Blood Urea Nitrogen 10 MG/DL Creatinine 0.89 MG/DL Random Glucose 77 MG/DL Total Protein 7.5 GM/DL Albumin 3.8 GM/DL Calcium Level 8.1 MG/DL Alkaline Phosphatase 72 U/L Aspartate Amino Transf (AST/SGOT) 22 U/L Alanine Aminotransferase (ALT/SGPT) 25 U/L Total Bilirubin 0.1 MG/DL Sodium Level 143 MEQ/L Potassium Level 3.6 MEQ/L Chloride Level 112 MEQ/L Carbon Dioxide Level 23.9 MEQ/L Anion Gap 7 MEQ/L Estimat Glomerular Filtration Rate 98 ML/MIN Thyroid Stimulating Hormone 3rd Gen 0.203 uIU/ML Urine Opiates Screen NEG Urine Barbiturates Screen NEG Urine Amphetamines Screen NEG Urine Benzodiazepines Screen NEG Urine Cocaine Screen NEG Urine Cannabinoids Screen NEG Ethyl Alcohol Level 263 MG/DL MDM Medical Record Reviewed: Yes Supervised Visit with LACY: No Narrative Course Patient presented as a Hobbs act for homicidal ideations. He was medically cleared. Psychiatric nurse practitioner saw him and lifted the Hobbs act. Vital signs stable throughout. Labs reviewed and unremarkable. Patient is well -appearing, calm, cooperative on discharge. He is stable for outpatient follow- up. Diagnosis Primary Impression: Alcohol intoxication Qualified Codes: F10.929 - Alcohol use, unspecified with intoxication, unspecified Additional Impression: Psychosis Qualified Codes: F29 - Unspecified psychosis not due to a substance or known physiological condition Patient Instructions: General Instructions, Brief Psychotic Disorder (ED), Alcohol Intoxication (ED), Medical Clearance for Psychiatric Care (ED) Departure Forms: Tests/Procedures Additional Instruction: Follow up with outpatient primary care provider. Follow up with outpatient Sonu Haitaobei Act [phone]. Return to ER if symptoms worsen. Scripts No Active Prescriptions or Reported Meds Disposition: 01 DISCHARGE HOME Condition: Stable Anita Payne Sep 08, 2017 18:46
== END 2017-09-08 18:54 | disposition home or self-care (01) ==
LOC: NEPD 09:46 → NEPJ 09-08 18:54
DX: F29 Unspecified psychosis not due to a substance or known physiological condition (principal); F10.129 Alcohol abuse with intoxication, unspecified; Y90.8 Blood alcohol level of 240 mg/100 ml or more; F31.9 Bipolar disorder, unspecified; F12.90 Cannabis use, unspecified, uncomplicated; B15.9 Hepatitis A without hepatic coma; B19.10 Unspecified viral hepatitis B without hepatic coma; Z59.0 Homelessness
CPT/HCPCS: 80053; 80307; 84443; 85025; 96372; 99284; J1630; J2060